=== PATIENT | male | born 1935 | race Hispanic/Latino ===

== ENCOUNTER 2019-03-24 10:39 | Inpatient (IN) | payer MEDICARE ==
--- NOTE | 2019-03-24 11:04 | ED PDOC ---
Arrival/HPI - General Chief Complaint: Weakness/Neurological Deficit Time Seen by Provider: 03/24/19 11:03 - History of Present Illness Narrative History of Present Illness (Text): 03/24/19 11:04 Patient is an 83 yo male with HTN and T2DM who presents with unsteady gait and frequent falls. Patient is Faroese speaking and is at bedside who helps translate and provide the history. Patient is typically very sedentary. However, he walks around the house without any assistive devices. states that patient has had about 3 falls over the past week. After each time, patient refused to come to the hospital. He did not lose consciousness or have head trauma. Patient says he fell because he slipped on water. This morning, patient stood up and was very unsteady on his feet causing him to fall again. notes that patient has been unsteady for awhile but it has noticeably worsened in the past week. Patient denies vision changes, dizziness, lightheadedness, LOC, nausea, vomiting, hearing changes, tinnitus. He states he feels that his legs feel weak and unsteady upon standing and it is hard to keep his balance. He denies focal weakness and sensory deficits. He denies fevers. Denies difficulty with urination. Denies history of stroke or heart attack. He is a heavy smoker for >60 years. He previously was a heavy drinker, quit 5 years ago. Time/Duration: > week Symptom Onset: Gradual Symptom Course: Worsening Activities at Onset: Light Context: Standing, Walking Past Medical History - Provider Review Nursing Documentation Reviewed: Yes Primary Care Provider: Ehsan Guan - Cardiac Hx Hypertension: Yes - Endocrine/Metabolic Hx Diabetes Mellitus Type 2: Yes - Psychiatric Hx Substance Use: No Family/Social History - Physician Review Nursing Documentation Reviewed: Yes Family/Social History: No Known Family HX. denies: CAD/ND Smoking Status: Heavy Smoker > 10 Cigarettes Daily Hx Alcohol Use: No Hx Substance Use: No Allergies/Home Meds Allergies/Adverse Reactions: Allergies No Known Allergies Allergy (Verified 03/24/19 10:58) Home Medications: Home Meds Medication Instructions Recorded Confirmed Bisoprolol [Zebeta] 10 mg PO DAILY 03/24/19 03/24/19 Empagliflozin [Jardiance] 10 mg PO DAILY 03/24/19 03/24/19 GlipiZIDE [Glucotrol] 10 mg PO BID 03/24/19 03/24/19 MetFORMIN [glucoPHAGE] 1,000 mg PO DAILY 03/24/19 03/24/19 hydroCHLOROthiazide [Microzide] 12.5 mg PO DAILY 03/24/19 03/24/19 Review of Systems - Review of Systems Constitutional: absent: Fatigue, Weight Change, Fevers, Night Sweats Eyes: absent: Vision Changes, Eye Pain ENT: absent: Hearing Changes, Tinnitus Respiratory: absent: SOB, Cough Cardiovascular: absent: Chest Pain, Palpitations, Syncope Gastrointestinal: Constipation. absent: Abdominal Pain, Nausea, Vomiting Genitourinary Male: absent: Dysuria, Hematuria Musculoskeletal: absent: Arthralgias, Myalgias Skin: absent: Rash, Pruritis, Skin Lesions Neurological: Gait Changes, Disequilibrium. absent: Headache, Dizziness, Focal Weakness, Speech Changes, Facial Droop, Seizure Endocrine: absent: Diaphoresis, Polyuria, Polydipsia Hemo/Lymphatic: absent: Adenopathy, Easy Bleeding, Easy Bruising Physical Exam Vital Signs Reviewed: Yes Vital Signs Temp Pulse Resp BP Pulse Ox 03/24/19 10:56 98.4 F 64 18 146/75 98 Temperature: Afebrile Blood Pressure: Hypertensive Pulse: Regular Respiratory Rate: Normal Appearance: Positive for: Non-Toxic, Comfortable Pain Distress: None Mental Status: Positive for: Alert and Oriented X 3 - Systems Exam Head: Present: Atraumatic, Normocephalic Pupils: Present: PERRL, Sluggish Extroacular Muscles: Present: EOMI Conjunctiva: Present: Normal Mouth: Present: Moist Mucous Membranes Nose (External): Present: Atraumatic Neck: Present: Normal Range of Motion, Trachea Midline. No: MIDLINE TENDERNESS, Lymphadenopathy Respiratory/Chest: Present: Clear to Auscultation, Good Air Exchange Cardiovascular: Present: Regular Rate and Rhythm, Normal S1, S2. No: Murmurs Abdomen: Present: Normal Bowel Sounds. No: Tenderness, Distention Back: Present: Normal Inspection Upper Extremity: Present: Normal Inspection, Normal ROM, Neurovascularly Intact Lower Extremity: Present: Normal Inspection, Normal ROM, Neurovascularly Intact Neurological: Present: GCS=15, CN II-XII Intact, Speech Normal, Motor Func Grossly Intact, Normal Sensory Function, Normal Cerebellar Funct, Normal 2Pt Descrimination Skin: Present: Warm, Dry, Normal Color Lymphatic: No: Cervical Adenopathy Psychiatric: Present: Alert, Oriented x 3, Normal Insight, Normal Concentration, Normal Affect, Normal Mood Medical Decision Making ED Course and Treatment: 03/24/19 11:35 CT head, labs 03/24/19 12:54 Re-evaluated patient. Resting comfortably. 03/24/19 13:[address] Db Guan who accepts patient for admission. Requests Dr. Braga for neurology consult. Spoke to patient and who are in agreement with plan. Re-evaluation Time: 13:38 Reassessment Condition: Re-examined, Unchanged - Lab Interpretations I have reviewed the lab results: Yes Interpretation: No clinic. lab abnormalty - RAD Interpretation Radiology Orders: CT head w/o contrast- no acute abnormalities, chronic microvascular changes are seen in the periventricular white matter and basal ganglia, mild-mod atrophy Grain Blender: ED Physician, Radiologist - EKG Interpretation EKG Interpretation (Text): 03/24/19 11:36 NSR Interpreted by ED Physician: Yes Type: 12 lead EKG Comparison: No previous EKG avail. Disposition/Present on Arrival - Present on Arrival Any Indicators Present on Arrival: No History of DVT/PE: No History of Uncontrolled Diabetes: No Urinary Catheter: No History of Decub. Ulcer: No History Surgical Site Infection Following: None - Disposition Have Diagnosis and Disposition been Completed?: Yes Diagnosis: Frequent falls, Unsteady gait Disposition: HOSPITALIZED Disposition Time: 13:41 Patient Plan: Admission Condition: FAIR Forms: [employer] (Czech)
[2019-03-24 11:43] LABS: BASO # 0.02 K/mm3 (0.0-2.0); BASO % 0.2 % (0.0-3.0); EOS # 0.1 (0.0-0.7); HEMOGLOBIN 15.8 g/dL (14.0-18.0); LYMPH # 1.9 (1.2-3.4); LYMPH % 17.4 % (22.0-35.0); MEAN CELL VOLUME 91.3 fl (80.0-105.0); MEAN CORPUSCULAR HEMOGLOBIN 29.9 pg (25.0-35.0); MEAN CORPUSCULAR HGB CONC 32.8 g/dl (31.0-37.0); MEAN PLATELET VOLUME 13.7 fl (7.0-11.0); MONO # 0.7 (0.1-0.6); MONO % 6.6 % (1.0-6.0); RBC 5.28 10^6/uL (3.5-6.1); RED CELL DISTRIBUTION WIDTH 12.8 % (11.5-14.5); WHITE BLOOD COUNT 10.8 10^3/uL (4.5-11.0)
[2019-03-24 11:55] LABS: ALB/GLOB RATIO 1.3 (1.1-1.8); ALBUMIN 3.9 g/dL (3.0-4.8); BLOOD UREA NITROGEN 30 mg/dL (7-21); CALCIUM 9.2 mg/dL (8.4-10.5); GFR NON-AFRICAN AMERICAN 53
[2019-03-24 11:59] LABS: ALT/SGPT 14 U/L (7-56); AST/SGOT 18 U/L (17-59)
--- NOTE | 2019-03-24 12:12 | CT ---
Date of service: 03/24/2019 PROCEDURE: CT HEAD WITHOUT CONTRAST. HISTORY: unsteady gait COMPARISON: None available. TECHNIQUE: Axial computed tomography images were obtained through the head/brain without intravenous contrast. Radiation dose: Total exam DLP = 1000.14 mGy-cm. This CT exam was performed using one or more of the following dose reduction techniques: Automated exposure control, adjustment of the mA and/or kV according to patient size, and/or use of iterative reconstruction technique. FINDINGS: HEMORRHAGE: No intracranial hemorrhage. BRAIN: No mass effect or edema. Chronic microvascular changes are seen in the periventricular white matter and basal ganglia. Mild to moderate atrophy. VENTRICLES: Unremarkable. No hydrocephalus. CALVARIUM: Unremarkable. PARANASAL SINUSES: Unremarkable as visualized. No significant inflammatory changes. MASTOID AIR CELLS: Unremarkable as visualized. No inflammatory changes. OTHER FINDINGS: None. IMPRESSION: Chronic microvascular changes are seen in the periventricular white matter and basal ganglia. Mild to moderate atrophy. No acute intracranial findings
[2019-03-24 13:06] LABS: URINE BILIRUBIN NEGATIVE (NEGATIVE); URINE BLOOD TRACE-INTACT (NEGATIVE); URINE GLUCOSE (UA) >=1000 mg/dL (NEGATIVE); URINE LEUKOCYTE ESTERASE NEGATIVE Leu/uL (NEGATIVE); URINE PROTEIN 100 mg/dL (<30 mg/dL); URINE UROBILINOGEN 0.2 E.U./dL (<1 E.U./dL)
[2019-03-24 13:15] LABS: URINE APPEARANCE CLEAR (CLEAR); URINE COLOR YELLOW (YELLOW)
[2019-03-24 13:25] LABS: URINE BACTERIA FEW /hpf; URINE RBC 0 - 2 /hpf (0-2)
--- NOTE | 2019-03-24 19:41 | CON ---
DATE: 03/24/2019 NEUROLOGY CONSULTATION CHIEF COMPLAINT: Frequent falls. HISTORY OF PRESENT ILLNESS: This is an 83-year -old man with history of type 2 diabetes mellitus and hypertension, who is becoming unsteady of gait and has frequent falls. Patient is Cymraes speaking. The is at bedside, helps translate and provides history. However, he walks around the house without any assistive device. states that he has been having 3 falls over the past week. Patient initially refused to come into the hospital, but was brought in. He stood up and he is very unsteady on his feet. He does have evidence of sensorimotor peripheral neuropathy on neuro examination and a wide-based gait, which he will benefit from a subacute rehab with physical therapy and a walker. He needs better diabetic control. B12 is currently pending. CAT scan of the head showed no acute cranial abnormality, just chronic ischemic changes. PAST MEDICAL HISTORY: As above. SOCIAL HISTORY: No illicit drug use, smoking or EtOH abuse. ALLERGIES: NO KNOWN DRUG ALLERGIES. MEDICATIONS: Reviewed by nurses' reconciliation sheet. REVIEW OF SYSTEMS: A 14-point review of systems is as per HPI. FAMILY HISTORY: Noncontributory. PHYSICAL EXAMINATION: GENERAL: Patient is sitting up in bed, in no acute distress. VITAL SIGNS: Temperature is 98.4, pulse rate is 78, blood pressure 148/70, respiratory rate 18, oxygen saturation 98% on room air. HEENT: Atraumatic, normocephalic. PERRLA. Extraocular muscles intact. NECK: Supple. No JVD. No adenopathy noted. LUNGS: Clear to auscultation. No adventitious sounds. HEART: S1 and S2, normal rate and rhythm. No murmurs, rubs or gallops. ABDOMEN: Soft, nontender and nondistended. Bowel sounds present. EXTREMITIES: No clubbing. No cyanosis. Peripheral pulses are 2+ felt bilaterally. NEUROLOGIC: The patient is alert and orientated to person, place, month, and year. Recall time is 0/3. Poor attention span. Slow thought process. Cranial nerves II through XII are intact. Motor exam; moves all extremities equally. No pronator drift seen. Sensory exam; decreased light touch and pinprick up to the calves bilaterally. Decreased vibration at the toes. DTRs are 2+ and 1 at both knees and ankles. Coordination; opxdfy-pu-jadh intact. No dysmetria noted. Gait is deferred for now. 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 We will recommend; 1. Physical therapy as well as subacute rehab. 2. An assisted walker, a 4-wheel walker is most likely advised. 3. Keep blood sugars between 140 to 180 and better diabetic control. 4. Vitamin B12 level and recommend a supplementation. 5. Continue current and present medical management. Thank you for this consult. Kirk Braga MD
[2019-03-24] MEDS ORDERED: Pneumococcal 23-Valent Vaccine IM ONE (21:48)
[2019-03-24 21:49] VITALS: BMI 25.7
[2019-03-24] MEDS: Insulin Regular 1 UNITS/0.01 ML ML SC SCH (22:19)
[2019-03-25 08:00] LABS: BASO # 0.02 K/mm3 (0.0-2.0); BASO % 0.2 % (0.0-3.0); EOS # 0.2 (0.0-0.7); EOS % 2.1 % (1.5-5.0); HEMOGLOBIN 14.7 g/dL (14.0-18.0); LYMPH # 2.3 (1.2-3.4); LYMPH % 23.4 % (22.0-35.0); MEAN CELL VOLUME 89.9 fl (80.0-105.0); MEAN CORPUSCULAR HEMOGLOBIN 29.2 pg (25.0-35.0); MEAN CORPUSCULAR HGB CONC 32.5 g/dl (31.0-37.0); MEAN PLATELET VOLUME 13.9 fl (7.0-11.0); MONO # 0.9 (0.1-0.6); MONO % 9.3 % (1.0-6.0); RBC 5.03 10^6/uL (3.5-6.1); RED CELL DISTRIBUTION WIDTH 12.8 % (11.5-14.5)
[2019-03-25 08:16] LABS: ALB/GLOB RATIO 1.2 (1.1-1.8); ALBUMIN 3.8 g/dL (3.0-4.8); CALCIUM 9.2 mg/dL (8.4-10.5)
[2019-03-25] MEDS: Insulin Regular 1 UNITS/0.01 ML ML SC SCH ×3 (08:22→16:31)
--- NOTE | 2019-03-25 11:56 | CARD ---
APPROVED REPORT Date of service: 03/24/2019 EKG Measurement Heart [id number] CT [id number] <Conclusion> Poor data quality, interpretation may be adversely affected Normal sinus rhythm Nonspecific T wave abnormality Prolonged QT Abnormal ECG
--- NOTE | 2019-03-25 16:06 | HP ---
DATE OF EXAM: 03/25/2019 ADMITTING HISTORY AND PHYSICAL HISTORY OF PRESENT ILLNESS: The patient is an 83-year-old Kosovan-speaking male who presented to the emergency room at the insistence of his family after suffering several falls at home. The patient usually walks around his apartment without any assistive devices; however, recently, he had been falling and at times needing to hold onto the albright and furniture to ambulate around. I recently saw the patient in an office visit; however, he did not mention anything about the falls at that time. The patient denies any lightheadedness, vertigo, orthostasis. PAST MEDICAL HISTORY: The patient known to have a past medical history positive for hypertension and pwl-lhvotmt-thalklotx diabetes mellitus. His diabetes has been rather difficult to control in the past secondary to dietary indiscretion. SOCIAL HISTORY: He continues to smoke more than half a pack of cigarettes a day. He is a nonalcoholic drinker. He is , lives with his , a son is also nearby. ALLERGIES: HE HAS NO KNOWN MEDICAL ALLERGIES. MEDICATIONS: Medications at the time of admission included bisoprolol 10 mg daily, Jardiance 10 mg daily, Glucotrol 10 mg twice a day, metformin 1000 mg twice a day and hydrochlorothiazide 12.5 mg once a day. REVIEW OF SYSTEMS: Otherwise unremarkable. PHYSICAL EXAMINATION: VITAL SIGNS: His blood pressure is 146/75, heart rate is 64. he is afebrile at 98.4 degrees Fahrenheit. HEENT: Examination of the Head, eyes, ears, nose and Throat is unremarkable. The patient has severe poor vision. NECK: Supple with no lymphadenopathy. No goiter. LUNGS: Clear to auscultation and percussion; however, breath sounds are distant. HEART: Regular. No murmurs are appreciated. ABDOMEN: Soft and nontender with no organomegaly. EXTREMITIES: Free of cyanosis, clubbing or edema. NEUROLOGIC: The patient is awake, alert and oriented. There are no focal neurological signs. DIAGNOSTIC DATA: CAT scan of the head showed small vessel disease, was otherwise unremarkable. EKG showed regular sinus rhythm with nonspecific ST-T wave changes. LABORATORY DATA: Laboratory studies show the white blood cell count to be 10.8, hemoglobin and hematocrit are 15.8 and 48.2 respectively, platelet count is 152. Sodium is 138, potassium is 4.7, BUN and creatinine are 30 and 1.3 respectively. Nonfasting glucose is 189. The patient is to be admitted. Neurology consult from Dr. Braga is requested. The patient will be reevaluated in the morning. Ehsan Guan MD
--- NOTE | 2019-03-25 16:12 | PN ---
DATE: 03/25/2019 SUBJECTIVE: The patient is an 83-year-old male with a history of hypertension, sir-jodxxkt-rchrwiwxr diabetes mellitus, who was admitted to the [facility] yesterday after suffering several falls at home. The patient initially did not want to present to the emergency room; however, upon the insistence of his and son, he presented, was evaluated and admitted. The patient denies any vertigo or orthostatic symptoms. He cannot explain his reasons for falling except for his legs giving out. He was evaluated by Dr. Braga. Dr. Braga's consult is greatly appreciated. As per Dr. Braga, the patient is felt to have a peripheral neuropathy, diabetic sensorimotor type. When seen today, the patient is resting comfortably. He voices no complaints. PHYSICAL EXAMINATION: VITAL SIGNS: Stable. Physical exam is unchanged. ASSESSMENT AND PLAN: His and son are bedside. The case was discussed at length with them and they agree with physical therapy and possible transitional care versus subacute care facility depending on his evaluation by the physical therapist. We will continue to follow the patient closely. His medications for diabetes are continued. I discussed the possibility of insulin dosing for his diabetes. The explained that the patient is visually impaired and would not be able to dose himself with insulin that he would have to provided. We will contemplate this option for diabetes control during his hospital stay. Ehsan Guan MD
[2019-03-26] MEDS: Insulin Regular 1 UNITS/0.01 ML ML SC SCH ×3 (08:07→17:02)
--- NOTE | 2019-03-26 13:38 | PN ---
DATE: 03/26/2019 SUBJECTIVE: The patient is an 83-year-old male with a history of hypertension, akg-gjcgazx-gwldpkfym diabetes mellitus who was admitted to the [facility] on 03/24/2019 after suffering several falls at home. Under the insistence of his and son, the patient was brought to the emergency room where he is evaluated and admitted. He was evaluated by Dr. Braga, the neurologist who felt the patient has had a diabetic sensorimotor type peripheral neuropathy. When seen today, the patient is resting comfortably. He voices no complaints. Heart is regular. Lungs are clear anteriorly. The patient was apparently evaluated by physical therapy yesterday; however, no note is yet available in the chart. Orthostatic blood pressures were ordered; however, they were not yet done. I discussed the case with the nurse who claimed the short staff holiday weekend physical therapist, we will make every attempt to evaluate the patient later today. Orthostatics will be done later today also. We will continue to follow the patient closely. Hopefully, he will be accepted to either our Transitional Care Unit or recommendation to subacute care facility for ambulatory strength and endurance. Ehsan Guan MD
[2019-03-27] MEDS: Insulin Regular 1 UNITS/0.01 ML ML SC SCH ×6 (04:27→22:02)
[2019-03-27] MEDS ORDERED: Iodixanol 320 MG/ML 100 ML BOTTLE IV ONE (11:03)
--- NOTE | 2019-03-27 11:34 | CT ---
Date of service: 03/27/2019 PROCEDURE: CT HEAD WITHOUT CONTRAST. HISTORY: right arm weakness COMPARISON: CT head dated 03/24/2019. TECHNIQUE: Axial computed tomography images were obtained through the head/brain without intravenous contrast. Radiation dose: Total exam DLP = 980.97 mGy-cm. This CT exam was performed using one or more of the following dose reduction techniques: Automated exposure control, adjustment of the mA and/or kV according to patient size, and/or use of iterative reconstruction technique. FINDINGS: HEMORRHAGE: No intracranial hemorrhage. BRAIN: No mass effect or edema. Atrophy. Chronic microvascular ischemic changes. Bilateral basal ganglia lacunar infarctions. VENTRICLES: Prominent. No hydrocephalus. CALVARIUM: Unremarkable. PARANASAL SINUSES: Unremarkable as visualized. No significant inflammatory changes. MASTOID AIR CELLS: Unremarkable as visualized. No inflammatory changes. OTHER FINDINGS: None. IMPRESSION: No acute intracranial pathology. Age-related changes. No significant interval change. Findings given to CRISTINA Guillermo by Dr. Dennison at 11:27 a.m. on 03/27/2019.
--- NOTE | 2019-03-27 11:36 | PCM.RRT ---
PROFESSOR OF RHETORIC Nurse Assessment - Situation Date: 03/27/19 Time PROFESSOR OF RHETORIC was called: 10:48 PROFESSOR OF RHETORIC Responder Arrival Time: 10:48 PROFESSOR OF RHETORIC Location:: [address] [place] [address] Room Number: [id number] PROFESSOR OF RHETORIC Reason for Call: Possible Stroke PROFESSOR OF RHETORIC Called By: RN - IV IV Inserted during PROFESSOR OF RHETORIC?: No - Respiratory Oxygen Delivery Method: Room Air Received Nebulizer Treatments:: No Was the Patient Ventilated with Bag/Mask 100% O2?: No Secretions Suctioned?: No Was the Patient Intubated?: No Was the Patient Placed on a Ventilator?: No - Diagnostic Test Ordered EKG: Yes CT Scan: Yes Other Diagnostic Test Ordered: CTA head, CT head, MRI brain - Stat Labs Ordered PROFESSOR OF RHETORIC Stat Labs Ordered: CBC, BMP PROFESSOR OF RHETORIC Other Labs Ordered: magnesium, phosporus CPR started during PROFESSOR OF RHETORIC?: No - Vital Signs Vital Sign: Rapid Response Vital Sign Blood Pressure 155/80 Pulse Rate 68 Respiratory Rate 18 Temperature 98.6 F Oxygen Saturation 94 - Finger Stick Blood Glucose Finger Stick Blood Glucose: 261 - Time PROFESSOR OF RHETORIC Ended Time PROFESSOR OF RHETORIC Ended: 11:05 - Recommendations Notifications: Attending Physician, Consultations - Neurological Status (Select all that apply): Alert, Responsive - Respiratory Oxygen Delivery Method: Room Air - Constitutional Appears: Non-toxic, No Acute Distress - Head Head Exam: ATRAUMATIC, NORMOCEPHALIC - Eyes Eye Exam: EOMI, Normal appearance - Respiratory Exam Respiratory Exam: Clear to Ausculation Bilateral, NORMAL BREATHING PATTERN. absent: Accessory Muscle Use - Cardiovascular Exam Cardiovascular Exam: RRR, +S1, +S2 - GI/Abdominal Exam GI & Abdominal Exam: Soft, Normal Bowel Sounds - Neurological Exam Neurological Exam: Alert, Awake Additional exam: left lower facial droop, incoherent speech, dysarthria, left arm 0/5 strength, left leg 2/5 - Extremities Exam Extremities Exam: Normal Inspection Plan - Assessment of Findings&Treatment Plan 83 year old male with a past medical history of hypertension, DM II, and tobacco dependence who was admitted to [facility] for frequent falls at home. Today, in the late morning the patient was noted to have left side weakness by the PMD. A code stroke was called. The patient was noted to have slurred speech, left arm weakness, and a left facial droop since yesterday (wednesday03/26/2019) according to the son who lives with the patient. The patient is not in the time window for tPA. The patient was taken to CT accompanied by the house doctor and nursing staff. He will be transferred to telemetry for cardiac monitoring. The patient scored a 15 on the NIH stroke scale at the time of code stroke. The case was discussed with the on-call neurohospitalist who agreed the patient is not a candidate for tPA. NIHSS Scale ([place]) Time Performed: 10:55 - Notes Notes: 15
--- NOTE | 2019-03-27 11:53 | CP.PCM.CON ---
History of Present Illness - History of Present Illness History of Present Illness: Neurology Consultation Note: Consult requested by Dr. Macias Mr. Patiño is an 83-year-old man with a past medical history of HTN, DM, who was initially admitted for frequent falls and deconditioning, and was found to be more lethargic with left facial droop and left side weakness yesterday that appears to have progressed more today. A "code stroke" was called, but the last time he was at his baseline was not known. Non-contrast CT scan of the head showed multiple chronic subcortical infarcts as well as some right parietal and right pontine areas of hypodensity with a subacute appearance. 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 The patient continues to have dysarthria and lefts side weakness. Review of Systems - Review of Systems Systems not reviewed;Unavailable: Altered Mental Status Past Patient History - Past Social History Smoking Status: Current Some Days Smoker - CARDIAC Hx Hypertension: Yes - PULMONARY Hx Respiratory Disorders: Yes (SMOKES 10 CIGARETTES EVERY 3 D DAY.) - NEUROLOGICAL Hx Neurological Disorder: Yes (PARESTHESIA LE) - HEENT Hx HEENT Problems: Yes Hx Cataracts: Yes (WITH BIALTERAL SX) Hx Glaucoma: Yes (RIGHT EYE HAD LASER SX.) - RENAL Hx Chronic Kidney Disease: No - ENDOCRINE/METABOLIC Hx Diabetes Mellitus Type 2: Yes - HEMATOLOGICAL/ONCOLOGICAL Hx Blood Disorders: No - INTEGUMENTARY Hx Dermatological Problems: No - MUSCULOSKELETAL/RHEUMATOLOGICAL Hx Musculoskeletal Disorders: Yes Hx Falls: Yes (MULTIPLE,LEGS WEAK) Hx Unsteady Gait: Yes - GASTROINTESTINAL Hx Gastrointestinal Disorders: Yes (HERNIA SX) - GENITOURINARY/GYNECOLOGICAL Hx Genitourinary Disorders: No - PSYCHIATRIC Hx Psychophysiologic Disorder: No Hx Substance Use: No - SURGICAL HISTORY Hx Surgeries: Yes (BILATERAL CATARACT SX,GLAUCOMA SX,HERNIORHAPPHY) Meds Allergies/Adverse Reactions: Allergies Allergy/AdvReac Type Severity Reaction Status Date / Time No Known Allergies Allergy Verified 03/24/19 17:32 - Medications Medications: Current Medications Fludrocortisone Acetate (Florinef) 0.1 mg PO DAILY [facility] Last Admin: 03/27/19 10:19 Dose: 0.1 mg Glipizide (Glucotrol) 10 mg PO BID [facility] Last Admin: 03/27/19 10:19 Dose: 10 mg Hydrochlorothiazide (Microzide) 12.5 mg PO DAILY [facility] Last Admin: 03/27/19 10:19 Dose: 12.5 mg Insulin Human Regular (Humulin R) 0 units SC ACHS [facility]; Protocol Last Admin: 03/27/19 08:11 Dose: 2 unit Metformin HCl (Glucophage) 1,000 mg PO DAILY [facility] Last Admin: 03/27/19 10:18 Dose: 1,000 mg Nicotine (Nicoderm Cq) 1 patch TD DAILY [facility] Last Admin: 03/27/19 10:19 Dose: 1 patch Non-Formulary Medication (Bisoprolol [Zebeta]) 10 mg PO DAILY [facility] Physical Exam - Constitutional Appears: Confused - Head Exam Head Exam: ATRAUMATIC, NORMAL INSPECTION, NORMOCEPHALIC - Eye Exam Eye Exam: EOMI, Normal appearance, PERRL - ENT Exam ENT Exam: Mucous Membranes Moist, Normal Exam - Neck Exam Neck exam: Positive for: Normal Inspection - Respiratory Exam Respiratory Exam: Clear to Auscultation Bilateral, NORMAL BREATHING PATTERN - Cardiovascular Exam Cardiovascular Exam: REGULAR RHYTHM, +S1, +S2 - GI/Abdominal Exam GI & Abdominal Exam: Normal Bowel Sounds, Soft. absent: Tenderness - Neurological Exam Neurological exam: Alert, Altered, CN II-XII Intact, Reflexes Normal Additional comments: Dysarthric and somewhat aphasic. left side upper extremity is 3/5 in strength, left lower extremity is 3/5 in strength. Able to maintain both limbs for more than 5 seconds anti-gravity. Left side neglect noted. Left facial droop noted. NIHSS= 6 - Psychiatric Exam Psychiatric exam: Normal Affect, Normal Mood - Skin Skin Exam: Dry, Intact, Normal Color, Warm Results - Vital Signs Recent Vital Signs: Last Vital Signs Temp 98.4 F 03/27/19 08:22 Pulse 60 03/27/19 08:22 Resp 18 03/27/19 08:22 BP 148/67 03/27/19 08:22 Pulse Ox 93 L 03/27/19 08:22 - Labs Result Diagrams: 03/27/19 10:50 03/25/19 07:00 Labs: Laboratory Results - last 24 hr 03/26/19 03/26/19 03/26/19 11:13 16:06 21:09 POC Glucose (mg/dL) 279 H 241 H 193 H 03/27/19 03/27/19 03/27/19 06:13 10:49 11:31 POC Glucose (mg/dL) 226 H 261 H 227 H Assessment & Plan (1) Ischemic stroke Assessment and Plan: This appears to be likely due to heavy atherosclerotic and small vessel disease burden due to chronic HTN and DM. He is not a candidate for IV tPA due to being outside the 4.5 hour time window. There is no large vessel occlusion, and therefor thrombectomy is not indicated. A CT perfusion would be helpful to determine if the right carotid artery stenosis is causing his symptoms with decreased cerebral perfusion. Neurointerventional will be consulted for possible FLAKITA stenting. I recommend the followin. Telemetry 2. MRI brain without contrast 3. Echocardiogram with bubble study 4. Load with plavix 300 mg now and continue 75 mg daily along with aspirin 81 mg daily 5. Start high dose statin with Lipitor 40 mg daily 6. Fluids with NS at 100 mL/hr 7. Permissive HTN (only treat BP higher than 220/110 mm Hg for the next 36 hours) 8. Check HbA1c, Lipid panel, B12, folate, TSH and vitamin D 9. PT/OT eval and treatment 10. Case management consult Thank you for this consultation. Status: Acute
[2019-03-27 12:12] LABS: HEMOGLOBIN 14.9 g/dL (14.0-18.0); MEAN CELL VOLUME 89.9 fl (80.0-105.0); MEAN CORPUSCULAR HEMOGLOBIN 30.2 pg (25.0-35.0); MEAN CORPUSCULAR HGB CONC 33.6 g/dl (31.0-37.0); MEAN PLATELET VOLUME 13.6 fl (7.0-11.0); RBC 4.94 10^6/uL (3.5-6.1); RED CELL DISTRIBUTION WIDTH 12.8 % (11.5-14.5); WHITE BLOOD COUNT 11.6 10^3/uL (4.5-11.0)
[2019-03-27] MEDS ORDERED: Sodium Chloride 0.9% 500 ML IV STA (12:25)
[2019-03-27 12:26] LABS: ALB/GLOB RATIO 1.2 (1.1-1.8); ALBUMIN 3.8 g/dL (3.0-4.8); CALCIUM 8.9 mg/dL (8.4-10.5)
--- NOTE | 2019-03-27 12:33 | CT ---
Date of service: 03/27/2019 PROCEDURE: CT Angiography of the Head and Neck. HISTORY: cva COMPARISON: Noncontrast head CT 03/27/2019. TECHNIQUE: CT angiography of the head and neck was performed following intravenous contrast administration. Coronal and sagittal maximum intensity projection reformatted images were generated. Contrast Dose: Visipaque 320, 100 cc Radiation dose: Total exam DLP = 503.34 mGy-cm. This CT exam was performed using one or more of the following dose reduction techniques: Automated exposure control, adjustment of the mA and/or kV according to patient size, and/or use of iterative reconstruction technique. FINDINGS: INTERNAL CEREBRAL ARTERIES: Note is made of partially calcified atherosclerosis of the bilateral cavernous internal carotid artery segments without left ICA significant stenosis. Limited petrous ICA atherosclerotic plaques identified, right greater than left. Moderate to severe stenosis seen at the mid right cavernous ICA. The skull base, and supraclinoid segments are bilaterally widely patent. ANTERIOR CEREBRAL ARTERIES: Unremarkable. A1 and A2 segments are widely patent. Smaller distal branches unremarkable, as visualized. MIDDLE CEREBRAL ARTERIES: Unremarkable. M1 and M2 segments are widely patent. Perisylvian branches grossly symmetric. POSTERIOR CIRCULATION: Basilar Artery: Moderate to severe proximal to mid segmental stenosis identified. Distal Vertebral Arteries: Left dominant vertebrobasilar circulation. 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 Posterior Cerebral Arteries: Unremarkable. Posterior Inferior Cerebellar Arteries: Unremarkable. 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 Common Carotid arteries: The bilateral common carotid appear widely patent from their origins to their bifurcations with no significant stenosis appreciated. Diffuse intimal thickening and limited scattered calcified atherosclerotic plaque is identified at the bilateral common carotid arteries. Moderate bilateral carotid bulb are hard plaque is identified. No evidence to suggest common carotid artery dissection. Internal Carotid arteries: Mild origin stenosis of the cervical internal carotid artery segments is identified bilaterally due to soft greater than hard plaque at the bulb extending into the origins of these arteries. No evidence of dissection bilaterally. There is prominent ectasis of the proximal right ICA. Limited atherosclerosis identified at the distal bilateral cervical ICAs. External Carotid arteries: Appear unremarkable bilaterally. Vertebral arteries: The bilateral vertebral arteries appear normal in caliber from their origins to their distal cervical segments. No significant stenosis or definite pattern of dissection. ANEURYSM/ VASCULAR MALFORMATIONS: None. OTHER FINDINGS: None. IMPRESSION: 1. 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 No large vessel occlusion appreciated in the intracranial segment of the exam. 2. Moderate to severe mid right cavernous ICA stenosis. No moderate or severe left ICA stenosis in the intracranial portion of the examination though bilateral cavernous and petrous segmental atherosclerotic plaque is identified. 3. Mild origin stenoses of the bilateral cervical internal carotid arteries identified without moderate or high-grade stenosis or even occlusion otherwise. 4. Prominent proximal right cervical ICA ectasis. 5. 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
[2019-03-27] MEDS: Sodium Chloride 0.9% 1,000 ML IV SCH (13:37)
[2019-03-27 17:13] LABS: FOLATE 9.6 ng/mL
--- NOTE | 2019-03-28 00:49 | PN ---
DATE: 03/27/2019 SUBJECTIVE: The patient is an 83-year-old male with a history of hypertension, noninsulin-dependent diabetes mellitus who was admitted to the [facility] on 03/24/2019 after suffering several falls at home. On the insistence of his and son, he was brought to the emergency room where he was evaluated and admitted. He was evaluated by Dr. Braga the neurologist who felt the patient had diabetic sensorimotor type peripheral neuropathy. The patient was being scheduled for physical therapy, either at the Transitional Care Unit at [facility] or at a subacute care facility. The orthostatic blood pressures were ordered and the patient was shown to be orthostatic. His blood pressure was 143/69 when supine and it fell to 105/66 when standing. Florinef was started. The patient received his first dose last evening and the second dose today. When seen today, the patient was much less responsive. He was aphasic. There was a definite weakness on his left side especially noted in the left upper extremity. The patient was unable to follow commands or give handgrips. Deep tendon reflexes were negative on the left side. Babinski reflexes were positive. The Code Stroke was called. The patient is being transferred to room 277, telemetry and after a CT scan is performed. The CT scan of the head without contrast showed no acute intracranial pathology. There were age related changes and no significant changes compared to the CT scan that was done on admission. Dr. Braga his neurologist was notified. Dr. Monahan the neurologist program production specialist also was consulted. The family members were present during this evaluation and Code Stroke and they were kept abreast of the situation. An MRI is hopefully pending for later on today. The patient will be reevaluated in the morning. Anticoagulation is to be discussed with Neurology. As per family at bedside, the patient did become very confused in the past while on Januvia for his diabetes, and therefore, the Januvia has been discontinued. We are continuing to follow the patient closely. Ehsan Guan MD
[2019-03-28] MEDS: Sodium Chloride 0.9% 1,000 ML IV SCH ×3 (04:55→21:57)
[2019-03-28] MEDS: Insulin Regular 1 UNITS/0.01 ML ML SC SCH ×4 (08:20→21:53)
[2019-03-28] MEDS: Non Formulary Medication (Bisoprolol [Zebeta] 10 mg) PO SCH (09:15)
--- NOTE | 2019-03-28 11:10 | CARD ---
APPROVED REPORT Date of service: 03/27/2019 EKG Measurement Heart [id number] <Conclusion> Sinus rhythm with occasional premature ventricular complexes Nonspecific ST and T wave abnormality Prolonged QT Abnormal ECG
--- NOTE | 2019-03-28 11:10 | MRI ---
Date of service: 03/28/2019 PROCEDURE: MRI BRAIN WITHOUT CONTRAST HISTORY: Code stroke COMPARISON: Comparison made with CTA of the neck and brain 03/27/2019. TECHNIQUE: Multiplanar, multisequence MR images of the brain were obtained without intravenous contrast enhancement. FINDINGS: HEMORRHAGE: No acute parenchymal, subarachnoid nor extra-axial hemorrhage. No evidence of hemosiderin deposition is identified on gradient echo weighted sequence. DWI: Multiple acute -subacute infarcts seen scattered about both middle cerebellar peduncles, brainstem including both cerebral peduncles and medial margins of both occipital poles. There is also a faint small infarct in the left vermis subacute -chronic infarct left vermis BRAIN PARENCHYMA: Moderate to fairly significant diffuse and confluent chronic white matter ischemic changes seen extending peripherally into the deep and subcortical white matter both cerebral hemispheres. In addition, multiple more discrete chronic infarcts scattered about the deep and subcortical white matter as well as both basal nuclei and both cerebellar hemispheres left greater than right. Moderate generalized volume loss. Numerous dilated perivascular spaces are present most pronounced within both basal nuclei extending into the ramírez radiata and inferior centrum semiovale. VENTRICLES: No obstructive hydrocephalus. CRANIUM: Unremarkable. ORBITS: Changes of bilateral cataract surgery again seen. PARANASAL SINUSES/MASTOIDS: Clear VASCULAR SYSTEM: Apparent atherosclerotic narrowing of the distal right vertebral artery (intradural segment) just before it joins the left vertebral artery OTHER FINDINGS: None. IMPRESSION: Multiple acute -subacute infarcts seen scattered about both middle cerebellar peduncles, brainstem including both cerebral peduncles and medial margins of both occipital poles. There is also a faint small infarct in the left vermis subacute -chronic infarct left vermis Moderate to fairly significant diffuse and confluent chronic white matter ischemic changes seen extending peripherally into the deep and subcortical white matter both cerebral hemispheres. In addition, multiple more discrete chronic infarcts scattered about the deep and subcortical white matter as well as both basal nuclei and both cerebellar hemispheres left greater than right. Suspect irregular atherosclerotic narrowing distal right vertebral artery just (intradural segment), just before joining left vertebral artery Moderate generalized volume loss. Findings discussed with 2 Elias Nance at 11:05 a.m. with written down and read back verification.
--- NOTE | 2019-03-28 11:32 | CP.PCM.PCO ---
Physician Communication Note - Physician Communication Note Physician Communication Note: echo pending, s/p CVA
--- NOTE | 2019-03-29 01:42 | PN ---
DATE: 03/28/2019 SUBJECTIVE: The patient was seen this Wednesday in room 277, bed 1 with his son and at the bedside. The son seems a bit angry at his father's illness asking questions about his scans and asking to compare the initial CT scan to the most recent one yesterday and his MRI of this morning. PHYSICAL EXAMINATION: GENERAL: The patient is in bed, does not respond to voice and light touch. Left side is completely flaccid. He is breathing on his own. Does not follow commands. LUNGS: Respirations are easy. HEART: Not tachycardic. EXTREMITIES: Show no edema. LABORATORY DATA: CT scans were reviewed. Initial CT scan is negative. Followup CT scan was negative for hemorrhage or stroke. CTA showed multiple defects and a rather extensive atherosclerotic cerebrovascular disease. MRI shows multi-infarcts in the core and central brain functions. PLAN: We will discuss with Neurology. We will certainly need to speak with the son and the patient's family and explain his poor prognosis in detail. Continue aggressive supportive care. Echo is pending. We will continue to follow. Bobo Guan MD [facility]
--- NOTE | 2019-03-29 07:52 | CP.PCM.PCO ---
<Wili Sanon - Last Filed: 03/29/19 07:54> Physician Communication Note - Physician Communication Note Physician Communication Note: CODE BLUE/ INSPECTOR [employer] SEAM Addendum Addendum: 03/29/19 07:45 INSPECTOR PL[employer] SE[employer] called 0650 for respiratory distress/ apnea; Patient was noted to become cyanotic during suctioning this morning During [employer] evaluation patient was noted to be Patient was unresponsive not responding to verbal or physical stimuli Pale, Diaphoretic, Cyanotic, No breath sounds, pulseless Code blue called at 0654 Initial vital set unobtainable CPR started 0655; Pulse checks Q2 minutes Noted to be in PEA throughout code 4 rounds Epi and 2 round bicarb given ROSC Obtained after 13 minutes at 0707 Intubated at 0714 and transferred to ICU PMD notified this morning Both of patients Sons at bedside BP Post ROSC: 221/106 209/146 - 0710AM Labs: CBC, CMP, EKG, ABG, CXR, CT Head Code Leader: Dr. Hugo Acosta Attending Present During Code; Dr. Jara <Ana Jara - Last Filed: 03/29/19 19:04> Attending/Attestation - Attestation I have personally seen and examined this patient.: Yes I have fully participated in the care of the patient.: Yes I have reviewed all pertinent clinical information: Yes
[2019-03-29 07:57] LABS: HEMOGLOBIN 14.2 g/dL (14.0-18.0); MEAN CELL VOLUME 91.9 fl (80.0-105.0); MEAN CORPUSCULAR HEMOGLOBIN 29.4 pg (25.0-35.0); MEAN PLATELET VOLUME 13.9 fl (7.0-11.0); RBC 4.83 10^6/uL (3.5-6.1); RED CELL DISTRIBUTION WIDTH 12.7 % (11.5-14.5); WHITE BLOOD COUNT 14.5 10^3/uL (4.5-11.0)
[2019-03-29 08:15] LABS: ALB/GLOB RATIO 1.2 (1.1-1.8); ALBUMIN 3.2 g/dL (3.0-4.8); ALT/SGPT 125 U/L (7-56); AST/SGOT 147 U/L (17-59); BLOOD UREA NITROGEN 18 mg/dL (7-21); CALCIUM 7.8 mg/dL (8.4-10.5); GFR NON-AFRICAN AMERICAN 58
--- NOTE | 2019-03-29 08:50 | CT ---
Date of service: 03/29/2019 PROCEDURE: CT HEAD WITHOUT CONTRAST. HISTORY: code blue COMPARISON: Unenhanced head CT 03/27/2019. Brain MRI without contrast 03/28/2019. TECHNIQUE: Axial computed tomography images were obtained through the head/brain without intravenous contrast. Radiation dose: Total exam DLP = 960.87 mGy-cm. This CT exam was performed using one or more of the following dose reduction techniques: Automated exposure control, adjustment of the mA and/or kV according to patient size, and/or use of iterative reconstruction technique. FINDINGS: HEMORRHAGE: No intracranial hemorrhage. BRAIN: A small lucency at the upper right maranda represents of a small subacute infarct corresponding to restricted diffusion in the same location in prior brain MRI noted above. Other areas of acute or subacute tiny infarcts are not as well defined as in prior MRI but may be mass by chronic microangiopathy to some degree. Age-appropriate diffuse cerebral atrophy chronic microangiopathy are reiterated as well as chronic lacunes identified at the bilateral basal ganglia, left occipital lobe and left cerebellum. No interval mass effect or suspicious extra-axial collection appreciable. VENTRICLES: Unremarkable. No hydrocephalus. CALVARIUM: Unremarkable. PARANASAL SINUSES: Unremarkable as visualized. No significant inflammatory changes. MASTOID AIR CELLS: Unremarkable as visualized. No inflammatory changes. OTHER FINDINGS: None. IMPRESSION: A small subacute infarct upper right maranda corresponding to area of restricted diffusion on prior brain MRI 03/28/2019.. Consider follow-up MRI or CT. Multifocal additional small infarcts identified in prior brain MRI primarily the bilateral posterior cerebral artery distribution are less well characterized due to their and the presence of chronic microangiopathy in this patient reducing density in significant portions of the patient's white matter. No significant mass effect throughout the brain at this time. No intracranial hemorrhage. Multiple chronic lacune is are identified as discussed above. Findings discussed with Dr. Lenora Guan with written down and read back verification 03/29/2019 8:39 a.m..
--- NOTE | 2019-03-29 08:56 | RAD ---
Date of service: 03/29/2019 HISTORY: placement check COMPARISON: No prior. FINDINGS: LUNGS: Left upper lobe infiltrate overlying portions of the heart and aortic arch. PLEURA: No significant pleural effusion identified, no pneumothorax apparent. CARDIOVASCULAR: Cardiomegaly. No evidence of acute, significant cardiovascular disease. Atherosclerotic calcifications identified primarily aortic arch. OSSEOUS STRUCTURES: No significant abnormalities. VISUALIZED UPPER ABDOMEN: Distended stomach. OTHER FINDINGS: Endotracheal tube in satisfactory position. IMPRESSION: Left upper lobe infiltrate. Satisfactory position of endotracheal tube.
[2019-03-29 09:32] LABS: ARTERIAL BLOOD GAS HCO3 20.2 mmol/L (21-28); ARTERIAL BLOOD GAS O2 SAT 99.8 % (95-98); ARTERIAL BLOOD GAS PCO2 44 mm/Hg (35-45); ARTERIAL BLOOD GAS PH 7.27 (7.35-7.45); ARTERIAL BLOOD GAS TCO2 21.6 mmol.L (22-28)
--- NOTE | 2019-03-29 10:01 | CP.PCM.CON ---
<Rylan Benson - Last Filed: 03/29/19 11:23> History of Present Illness - History of Present Illness History of Present Illness: Rylan Benson, PGY-1 Consult note for Critical Care CC: S/P code blue for pulselessness and unresponsiveness HPI: Mr. Chang is a 83 M with PMHx of HTN and NIDDM who presented to the ICU s/p ROSC achieved after PEA, 4 rounds of epinephrine and intubation. Patient has been on telemetry floor originally admitted for multiple falls, for which neurologic workup in ongoing. Repeat lab work as well as chest x-ray and ABG were ordered. CTA performed a few days ago shows extensive atherosclerotic cerebrovascular disease. Further ROS unobtainable due to clinical condition. PMHx: HTN, NIDDM PSHx: All: NKDA Social: >half pack smoker a day Meds: As per MAR Family hx: Noncontributory Review of Systems - Review of Systems Systems not reviewed;Unavailable: Intubated Review of Systems: 12 point ROS unable to be obtained due to clinical condition Past Patient History - Past Social History Smoking Status: Current Some Days Smoker - CARDIAC Hx Hypertension: Yes - PULMONARY Hx Respiratory Disorders: Yes (SMOKES 10 CIGARETTES EVERY 3 D DAY.) - NEUROLOGICAL Hx Neurological Disorder: Yes (PARESTHESIA LE) - HEENT Hx HEENT Problems: Yes Hx Cataracts: Yes (WITH BIALTERAL SX) Hx Glaucoma: Yes (RIGHT EYE HAD LASER SX.) - RENAL Hx Chronic Kidney Disease: No - ENDOCRINE/METABOLIC Hx Diabetes Mellitus Type 2: Yes - HEMATOLOGICAL/ONCOLOGICAL Hx Blood Disorders: No - INTEGUMENTARY Hx Dermatological Problems: No - MUSCULOSKELETAL/RHEUMATOLOGICAL Hx Musculoskeletal Disorders: Yes Hx Falls: Yes (MULTIPLE,LEGS WEAK) Hx Unsteady Gait: Yes - GASTROINTESTINAL Hx Gastrointestinal Disorders: Yes (HERNIA SX) - GENITOURINARY/GYNECOLOGICAL Hx Genitourinary Disorders: No - PSYCHIATRIC Hx Psychophysiologic Disorder: No Hx Substance Use: No - SURGICAL HISTORY Hx Surgeries: Yes (BILATERAL CATARACT SX,GLAUCOMA SX,HERNIORHAPPHY) Meds Allergies/Adverse Reactions: Allergies Allergy/AdvReac Type Severity Reaction Status Date / Time No Known Allergies Allergy Verified 03/24/19 17:32 - Medications Medications: Current Medications Aspirin (Ecotrin) 81 mg PO DAILY [facility] Last Admin: 03/28/19 09:16 Dose: 81 mg Atorvastatin Calcium (Lipitor) 40 mg PO DIN [facility] Last Admin: 03/28/19 17:31 Dose: 40 mg Clopidogrel Bisulfate (Plavix) 75 mg PO DAILY [facility] Last Admin: 03/28/19 09:16 Dose: 75 mg Fludrocortisone Acetate (Florinef) 0.1 mg PO DAILY [facility] Last Admin: 03/28/19 10:50 Dose: 0.1 mg Glipizide (Glucotrol) 10 mg PO BID [facility] Last Admin: 03/28/19 17:31 Dose: 10 mg Heparin Sodium (Porcine) (Heparin) 5,000 units SC Q12 [facility]; Protocol Last Admin: 03/28/19 21:53 Dose: 5,000 units Hydrochlorothiazide (Microzide) 12.5 mg PO DAILY [facility] Last Admin: 03/27/19 10:19 Dose: 12.5 mg Sodium Chloride (Sodium Chloride 0.9%) 1,000 mls @ 100 mls/hr IV .Q10H [facility] Last Admin: 03/28/19 21:57 Dose: 100 mls/hr Insulin Human Regular (Humulin R) 0 units SC ACHS [facility]; Protocol Last Admin: 03/28/19 21:53 Dose: Not Given Metformin HCl (Glucophage) 1,000 mg PO DAILY [facility] Last Admin: 03/28/19 09:16 Dose: 1,000 mg Nicotine (Nicoderm Cq) 1 patch TD DAILY [facility] Last Admin: 03/28/19 09:16 Dose: 1 patch Non-Formulary Medication (Bisoprolol [Zebeta]) 10 mg PO DAILY [facility] Last Admin: 03/28/19 09:15 Dose: Not Given Physical Exam - Additional Findings Additional findings: - Constitutional Appears: Intubated - Head Exam Head Exam: ATRAUMATIC, NORMAL INSPECTION, NORMOCEPHALIC - Eye Exam Eye Exam: PERRL - ENT Exam ENT Exam: Mucous Membranes Moist, Normal Exam, ETT in place - Neck Exam Neck exam: Positive for: Normal Inspection - Respiratory Exam Respiratory Exam: Clear to Auscultation Bilateral, NORMAL BREATHING PATTERN - Cardiovascular Exam Cardiovascular Exam: REGULAR RHYTHM, +S1, +S2 - GI/Abdominal Exam GI & Abdominal Exam: Normal Bowel Sounds, Soft. absent: Tenderness - Neurological Exam Neurological exam: AAOx0 Additional comments: residual weakness unable to be assessed - Psychiatric Exam Psychiatric exam: unable to be assessed - Skin Skin Exam: Dry, Intact, Normal Color, Warm Results - Vital Signs Recent Vital Signs: Last Vital Signs Temp 98.4 F 03/29/19 06:00 Pulse 102 H 03/29/19 06:00 Resp 20 03/29/19 07:33 BP 170/73 H 03/29/19 06:00 Pulse Ox 99 03/29/19 07:33 - Labs Result Diagrams: 03/29/19 07:40 03/29/19 07:40 Labs: Laboratory Results - last 24 hr 03/28/19 03/28/19 03/28/19 10:00 11:28 16:34 WBC RBC Hgb Hct MCV MCH MCHC RDW Plt Count MPV pCO2 pO2 HCO3 ABG pH ABG Total CO2 ABG O2 Saturation ABG Base Excess ABG Potassium Glucose Lactate FiO2 Crit Value Called To Crit Value Called By Blood Gas Notified Time Sodium Potassium Chloride Carbon Dioxide Anion Gap BUN Creatinine Est GFR ( Amer) Est GFR (Non-Af Amer) POC Glucose (mg/dL) 209 H 137 H Random Glucose Uric Acid 6.9 Calcium Phosphorus Magnesium Total Bilirubin AST ALT Alkaline Phosphatase Total Protein Albumin Globulin Albumin/Globulin Ratio Arterial Blood Potassium 03/28/19 03/29/19 03/29/19 21:30 07:40 07:40 WBC 14.5 H D RBC 4.83 Hgb 14.2 Hct 44.4 MCV 91.9 MCH 29.4 MCHC 32.0 RDW 12.7 Plt Count 156 MPV 13.9 H pCO2 pO2 HCO3 ABG pH ABG Total CO2 ABG O2 Saturation ABG Base Excess ABG Potassium Glucose Lactate FiO2 Crit Value Called To Crit Value Called By Blood Gas Notified Time Sodium 139 Potassium 3.3 L Chloride 102 Carbon Dioxide 21 Anion Gap 19 BUN 18 Creatinine 1.2 Est GFR ( Amer) > 60 Est GFR (Non-Af Amer) 58 POC Glucose (mg/dL) 87 Random Glucose 334 H* D Uric Acid Calcium 7.8 L Phosphorus 7.5 H Magnesium 1.9 Total Bilirubin 1.4 H AST 147 H D ALT 125 H Alkaline Phosphatase 62 Total Protein 5.8 Albumin 3.2 Globulin 2.6 Albumin/Globulin Ratio 1.2 Arterial Blood Potassium 03/29/19 09:10 WBC RBC Hgb Hct MCV MCH MCHC RDW Plt Count MPV pCO2 44 pO2 294.0 H HCO3 20.2 L ABG pH 7.27 L ABG Total CO2 21.6 L ABG O2 Saturation 99.8 H ABG Base Excess -6.6 L ABG Potassium 3.6 Glucose 385 H Lactate 2.8 H FiO2 100.0 Crit Value Called To Crit Value Called By Micheal Blood Gas Notified Time 931 Sodium 140.0 Potassium Chloride 101.0 Carbon Dioxide Anion Gap BUN Creatinine Est GFR ( Amer) Est GFR (Non-Af Amer) POC Glucose (mg/dL) Random Glucose Uric Acid Calcium Phosphorus Magnesium Total Bilirubin AST ALT Alkaline Phosphatase Total Protein Albumin Globulin Albumin/Globulin Ratio Arterial Blood Potassium 3.6 Assessment & Plan - Assessment and Plan (Free Text) Assessment: Mr. Chang is a 83 M with PMHx of HTN and NIDDM who is under ICU management s/p ROSC and endotrachel tube placement. Neuro: - 03/29 CT head: A small subacute infarct upper right maranda corresponding to area of restricted diffusion on prior brain MRI 03/28/2019.. Consider follow-up MRI or CT. Multifocal additional small infarcts identified in prior brain MRI primarily the bilateral posterior cerebral artery distribution are less well characterized due to their and the presence of chronic microangiopathy in this patient reducing density in significant portions of the patient's white matter. No significant mass effect throughout the brain at this time. No intracranial hemorrhage. Multiple chronic lacune. - 03/28 Brain MRI: Multiple acute -subacute infarcts seen scattered about both middle cerebellar peduncles, brainstem including both cerebral peduncles and medial margins of both occipital poles. There is also a faint small infarct in the left vermis subacute -chronic infarct left vermis . Moderate to fairly significant diffuse and confluent chronic white matter ischemic changes seen extending peripherally into the deep and subcortical white matter both cerebral hemispheres. In addition, multiple more discrete chronic infarcts scattered about the deep and subcortical white matter as well as both b chad nuclei and both cerebellar hemispheres left greater than right. 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 No large vessel occlusion appreciated in the intracranial segment of the exam. Moderate to severe mid right cavernous ICA stenosis. Mild origin stenoses of the bilateral cervical internal carotid arteries identified without moderate or high-grade stenosis or even occlusion otherwise. Prominent proximal right cervical ICA ectasis. -Monitor neuro status. -Dr. Braga and Dr. 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 Cardio: -ASA, Plavix, Lipitor -Continue Levophed for pressure support, no signs of HD compromise -F/U Echo with bubble study -Maintain MAP>65. -Monitor for S/S, HD compromise. Pulm: -Intubated on PRVC -Maintain O2 saturation >90%. Vent: protective lung ventilation strategy, aspiration precautions 03/29 CXR: Left upper lobe infiltrate. Satisfactory position of endotracheal tube. 03/29 ABG shows mild resp acidosis, consider decreasing FiO2, f/u repeat in AM -Elevate bed to 30 degrees GI: -NPO, pending NGT placement -Increasing LFTs as compared to 2 days prior, continue to monitor -Pepcid IV for ppx /Nephro: -BUN/Cr improved at 1.2 -UA negative -Insert Smith, strict Is and Os -Continue monitoring. -Replete electrolytes as needed. Hypokalemia and hypocalcemia repleted -Maintain euvolemia. Endocrinology: -Hgb a1c 8.7 -Random glucose: 334 -high ISS, Increase accuchecks to q4 -Maintain euglycemia. Heme/Onc: -H/H stable -No signs of HD compromise. -Continue monitoring H/H ID: -Afebrile, slight leukocytosis -Monitor for signs and symptoms of infection. DVT prophylaxis: Heparin SC GI prophylaxis: Pepcid Code Status: DNR after discussion with family Patient seen, case reviewed and plan approved by Dr. Shola Dasilva. Rylan Benson, PGY-1 <Dom Dasilva - Last Filed: 03/29/19 11:46> Meds - Medications Medications: Current Medications Aspirin (Ecotrin) 81 mg PO DAILY [facility] Last Admin: 03/28/19 09:16 Dose: 81 mg Atorvastatin Calcium (Lipitor) 40 mg PO DIN [facility] Last Admin: 03/28/19 17:31 Dose: 40 mg Clopidogrel Bisulfate (Plavix) 75 mg PO DAILY [facility] Last Admin: 03/28/19 09:16 Dose: 75 mg Famotidine (Pepcid) 20 mg IVP DAILY [facility] Fludrocortisone Acetate (Florinef) 0.1 mg PO DAILY [facility] Last Admin: 03/28/19 10:50 Dose: 0.1 mg Glipizide (Glucotrol) 10 mg PO BID [facility] Last Admin: 03/28/19 17:31 Dose: 10 mg Heparin Sodium (Porcine) (Heparin) 5,000 units SC Q12 [facility]; Protocol Last Admin: 03/28/19 21:53 Dose: 5,000 units Hydrochlorothiazide (Microzide) 12.5 mg PO DAILY [facility] Last Admin: 03/29/19 11:11 Dose: Not Given Sodium Chloride (Sodium Chloride 0.9%) 1,000 mls @ 100 mls/hr IV .Q10H [facility] Last Admin: 03/28/19 21:57 Dose: 100 mls/hr Potassium Chloride (Potassium Chloride 20 Meq/100 Ml) 20 meq in 100 mls @ 50 mls/hr IVPB Q2H [facility] Stop: 03/29/19 14:29 Last Admin: 03/29/19 11:14 Dose: 50 mls/hr NOREPINEPHRINE BIT/0.9 % NACL (Levophed 4 Mg/ 250 Ml Ns Premixed) 4 mg in 250 mls @ 15 mls/hr IV .[id number] [facility]; Protocol PRN Reason: TITRATE PER MD ORDER Insulin Human Regular (Humulin R High) 0 units SC ACHS [facility]; Protocol Nicotine (Nicoderm Cq) 1 patch TD DAILY [facility] Last Admin: 03/28/19 09:16 Dose: 1 patch Non-Formulary Medication (Bisoprolol [Zebeta]) 10 mg PO DAILY [facility] Last Admin: 03/28/19 09:15 Dose: Not Given Results - Vital Signs Recent Vital Signs: Last Vital Signs Temp 98.4 F 03/29/19 06:00 Pulse 102 H 03/29/19 06:00 Resp 20 03/29/19 07:33 BP 170/73 H 03/29/19 06:00 Pulse Ox 99 03/29/19 07:33 - Labs Result Diagrams: 03/29/19 07:40 03/29/19 07:40 Labs: Laboratory Results - last 24 hr 03/28/19 03/28/19 03/29/19 16:34 21:30 07:40 WBC 14.5 H D RBC 4.83 Hgb 14.2 Hct 44.4 MCV 91.9 MCH 29.4 MCHC 32.0 RDW 12.7 Plt Count 156 MPV 13.9 H pCO2 pO2 HCO3 ABG pH ABG Total CO2 ABG O2 Saturation ABG Base Excess ABG Potassium Glucose Lactate FiO2 Crit Value Called To Crit Value Called By Blood Gas Notified Time Sodium Potassium Chloride Carbon Dioxide Anion Gap BUN Creatinine Est GFR ( Amer) Est GFR (Non-Af Amer) POC Glucose (mg/dL) 137 H 87 Random Glucose Calcium Phosphorus Magnesium Total Bilirubin AST ALT Alkaline Phosphatase Total Protein Albumin Globulin Albumin/Globulin Ratio Arterial Blood Potassium 03/29/19 03/29/19 03/29/19 07:40 09:10 11:40 WBC RBC Hgb Hct MCV MCH MCHC RDW Plt Count MPV pCO2 44 pO2 294.0 H HCO3 20.2 L ABG pH 7.27 L ABG Total CO2 21.6 L ABG O2 Saturation 99.8 H ABG Base Excess -6.6 L ABG Potassium 3.6 Glucose 385 H Lactate 2.8 H FiO2 100.0 Crit Value Called To Crit Value Called By Micheal Blood Gas Notified Time 931 Sodium 139 140.0 Potassium 3.3 L Chloride 102 101.0 Carbon Dioxide 21 Anion Gap 19 BUN 18 Creatinine 1.2 Est GFR ( Amer) > 60 Est GFR (Non-Af Amer) 58 POC Glucose (mg/dL) 369 H Random Glucose 334 H* D Calcium 7.8 L Phosphorus 7.5 H Magnesium 1.9 Total Bilirubin 1.4 H AST 147 H D ALT 125 H Alkaline Phosphatase 62 Total Protein 5.8 Albumin 3.2 Globulin 2.6 Albumin/Globulin Ratio 1.2 Arterial Blood Potassium 3.6 Addendum Addendum: 03/29/19 11:45 MICU Attending Addendum: Patient seen and examined with housestaff, case discussed on rounds. I agree with resident note above with the following additions/exceptions: 83M with HTN, DM hx of multiple strokes presented with left facial droop and left side weakness and a non-contrast CT scan of the head showed multiple chronic subcortical infarcts as well as some right parietal and right pontine areas of hypodensity with a subacute appearance. 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 Early this morning shahbaz guerrier called for PEA arrest. Achieved ROSC. Intubated by quill buncher and sorter. I suspect the etiology was resp in nature, possibly unable to clear secretions given his CVA. I spoke with his 2 sons and at bedside who said he would NOT have wanted to CPR in the first place. I conveyed my apologies that he was "coded" but we agreed that if he were to code again, no CPR would be performed. At this time, since he is intubated and hemodyncally stable, we will cont to provide supportive care. If he wakes up and shows signs of neuro recovery then we can conisder extubation, understanding the if were to fail again, he would not be re-intubated. 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 Family understands the decisions we made together. Pal care at bedside as well. For now, check CT head to ensure no worsening or conversion of prior strokes. Levophed via peripheral IV as a conservative measure to above central line procedure as per family wishes cont post- stroke care as per neuro recs CODE STATUS: DNR Rest of care as per resident note above Dom Dasilva MD Attending Pulmonary Critical Care Sleep Medicine CC Time 35 mins
[2019-03-29] MEDS ORDERED: Calcium Gluconate in NS 1 GM/50 ML BAG IV ONE (10:29)
[2019-03-29] MEDS ORDERED: NOREPINEPHRINE BIT/0.9 % NACL 4 MG/250 ML BAG IV PRN (11:23)
[2019-03-29] MEDS: Insulin Reg-HIGH-Coverage SC SCH ×2 (11:30→17:05)
[2019-03-29] MEDS: Insulin Regular 1 UNITS/0.01 ML ML SC SCH (11:55)
--- NOTE | 2019-03-29 11:55 | PCM.PCON ---
History of Present Illness - History of Present Illness History of Present Illness: Palliative consult requested by Karina Kim Reason: Goals of care This is 83 year old man with history of HTN, DM, who initially presented to ED on 03/24 with frequent falls and gait instability. Patient denied vision changes, fevers,dizziness, lightheadedness, LOC, nausea, vomiting, hearing changes, tinnitus. CT of head showed chronic micro angiopathic changes, no acute intra cranial abnormalities. On the morning of 03/27 he was noted to be more lethargic with left facial droop and left side weakness. Code stroke was called. Non- contrast CT scan of the head showed multiple chronic subcortical infarcts as well as some right parietal and right pontine areas of hypodensity with a subacute appearance. CTA of the head/neck showed moderate to severe intra cranial internal carotid artery stenosis on the right. As per Neuro note, he was not candidate for TpA. This morning patient was found to be in respiratory distress apnea. 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 Marred, lives with spouse. Family History: Non contributory Advance Care Planning: Unknown if patient has an advanced directive, family request he be DNR Review of Systems:As per HPI, unable to obtain intubated Physical Exam - Constitutional Appears: Chronically Ill Additional comments: Vital Signs: T 98.4, P 82, BP 170/73, vented 02 sat 99% - Head Exam Head Exam: NORMOCEPHALIC - Eye Exam Eye Exam: PERRL - ENT Exam ENT Exam: Mucous Membranes Moist - Respiratory Exam Respiratory Exam: Clear to Auscultation Bilateral - Cardiovascular Exam Cardiovascular Exam: REGULAR RHYTHM, +S1, +S2 - GI/Abdominal Exam GI & Abdominal Exam: Normal Bowel Sounds, Soft - Neurological Exam Neurological exam: Altered - Skin Skin Exam: Dry - Additional Findings Additional findings: Palliative performance scale 20% Palliative Care Assessment - Keron Scale Sensory Perception: Very Limited Moisture: Occasionally Moist Activity: Bedfast Mobility: Completely Immobile Nutrition: Probably Inadequate Friction & Shear: Problem Total Score - Skin Risk Assessment: 10 Palliative Care - Goals Treatment Goal(s): Alleviate symptoms, Improve quality of life End of life care discussed: Yes - Plan Interdisciplinary involved: Nurse, lumber yard worker, Physician Assessment & Plan - Assessment and Plan (Free Text) Assessment: This is 83 year old man with history of HTN, DM, who is admitted with CVA and is s/p cardiopulmonary arrest this morning. He is now intubated and on vasopressor support. Patient's and sons at bedside. Family has been updated of patient's con dition by the ICU team. Family also aware of results of head CT which was done this morning. Family expressed concerns about trajectory of patient illness during his hospitalization. Acknowledged their concerns, psychosocial support provided. Family has established that patient is to be DNR. Family wants to continue aggressive medical support at this time. Family will make further decisions based on patient's clinical progress over the next few days. Spiritual support offered, declined at this time I met with and oldest son later in the day. In the interim family spoke with Dr Monahan/Neuro and indicated that they understand the severity of patients brain injury. states she really doesn't want on ventilator. Encouraged to discuss feelings with both sons. Also encouraged to give things a day or so to see if patient can be weaned from vent. Comfort care discussed briefly. Will follow up with family tomorrow. Time spent with family in goals of care and advance care planning, 30 minutes Plan: Goals of care and advance Goals of care and advance care planning Continue Levophed for pressure support,maintain MAP>65. Continue vent support,maintain O2 saturation >90%. Monitor labs, correct electrolytes as needed. Neuro recs reviewed
--- NOTE | 2019-03-29 13:11 | CP.PCM.PN ---
Subjective - Date & Time of Evaluation Date of Evaluation: 03/29/19 Time of Evaluation: 13:08 - Subjective Subjective: Mr. Chang was seen and examined today at bedside in the ICU. He was intubated and sedated due to recent cardiac arrest. I spoke with the family and discussed the MRI brain findings. We discussed the possibility of a cardiac thrombus causing the strokes since the patient has multiple embolic appearing infarcts in both hemispheres and in that anterior and posterior circulation. Objective - Vital Signs/Intake and Output Vital Signs (last 24 hours): Temp Pulse Resp BP Pulse Ox 98.4 F 102 H 20 170/73 H 99 03/29/19 06:00 03/29/19 06:00 03/29/19 07:33 03/29/19 06:00 03/29/19 07:33 Intake and Output: 03/29/19 03/29/19 06:59 18:59 Intake Total 0 Balance 0 - Medications Medications: Current Medications Aspirin (Ecotrin) 81 mg PO DAILY [facility] Last Admin: 03/28/19 09:16 Dose: 81 mg Atorvastatin Calcium (Lipitor) 40 mg PO DIN [facility] Last Admin: 03/28/19 17:31 Dose: 40 mg Clopidogrel Bisulfate (Plavix) 75 mg PO DAILY [facility] Last Admin: 03/28/19 09:16 Dose: 75 mg Famotidine (Pepcid) 20 mg IVP DAILY [facility] Last Admin: 03/29/19 12:11 Dose: 20 mg Fludrocortisone Acetate (Florinef) 0.1 mg PO DAILY [facility] Last Admin: 03/28/19 10:50 Dose: 0.1 mg Glipizide (Glucotrol) 10 mg PO BID [facility] Last Admin: 03/28/19 17:31 Dose: 10 mg Heparin Sodium (Porcine) (Heparin) 5,000 units SC Q12 [facility]; Protocol Last Admin: 03/28/19 21:53 Dose: 5,000 units Hydrochlorothiazide (Microzide) 12.5 mg PO DAILY [facility] Last Admin: 03/29/19 11:11 Dose: Not Given Sodium Chloride (Sodium Chloride 0.9%) 1,000 mls @ 100 mls/hr IV .Q10H [facility] Last Admin: 03/28/19 21:57 Dose: 100 mls/hr Potassium Chloride (Potassium Chloride 20 Meq/100 Ml) 20 meq in 100 mls @ 50 mls/hr IVPB Q2H [facility] Stop: 03/29/19 14:29 Last Admin: 03/29/19 11:14 Dose: 50 mls/hr NOREPINEPHRINE BIT/0.9 % NACL (Levophed 4 Mg/ 250 Ml Ns Premixed) 4 mg in 250 mls @ 15 mls/hr IV .[id number] PRN; Protocol PRN Reason: TITRATE PER MD ORDER Insulin Human Regular (Humulin R High) 0 units SC ACHS [facility]; Protocol Nicotine (Nicoderm Cq) 1 patch TD DAILY [facility] Last Admin: 03/28/19 09:16 Dose: 1 patch Non-Formulary Medication (Bisoprolol [Zebeta]) 10 mg PO DAILY [facility] Last Admin: 03/28/19 09:15 Dose: Not Given - Labs Labs: 03/29/19 07:40 03/29/19 07:40 - Neurological Exam Neurological Exam: Altered Neuro motor strength exam: Left Upper Extremity: 2/1, Right Upper Extremity: 2/1, Left Lower Extremity: 2/1, Right Lower Extremity: 2/1 Additional comments: Somnolent/sedated, moves all extremities slightly to pain, but more movement is noted on the right side as compared with the left. Assessment and Plan (1) Ischemic stroke Assessment & Plan: Review of the MRI showed multiple cardio-embolic appearing infarcts. This is likely superimposed on his stenotic vasculature and has caused the present clinical picture. I recommend obtaining a OLESYA for further evaluation for a cardiac thrombus. Heparin drip should then be considered to prevent further inf arcts. Status: Acute
[2019-03-29] MEDS: Non Formulary Medication (Bisoprolol [Zebeta] 10 mg) PO SCH (13:14)
[2019-03-29 13:20] LABS: VENOUS BLOOD GAS PO2 50 mm/Hg (30-55); VENOUS BLOOD PH 7.31 (7.32-7.43)
--- NOTE | 2019-03-29 16:26 | CARD ---
APPROVED REPORT Date of service: 03/29/2019 EXAM: Two-dimensional and M-mode echocardiogram with Doppler and color Doppler. INDICATION STROKE..BUBBLE STUDY 2D DIMENSIONS Left Atrium (2D)4.0 (1.6-4.0cm)IVSd1.7 (0.7-1.1cm) LVDd3.3 (3.9-5.9cm)PWd1.6 (0.7-1.1cm) LVDs2.3 (2.5-4.0cm)FS (%) 29.6 % LVEF (%)58.0 (>50%) M-Mode DIMENSIONS Aortic Root3.80 (2.2-3.7cm)Aortic Cusp Exc.1.20 (1.5-2.0cm) Aortic Valve AoV Peak Axtvthqh880.0cm/Eyad Peak GR.5mmHg Mitral Valve MV E Ikmsglja76.2cm/sMV A Zkixbbsl60.9cm/sE/A ratio0.8 TDI E/Lateral E'0.0E/Medial E'0.0 Pulmonary Valve PV Peak Tspqripn04.5cm/sPV Peak Grad.2mmHg Tricuspid Valve TR Peak [id number]/sRAP [id number] Peak Gr.25mmHg [id number] LEFT VENTRICLE The left ventricle is normal size. There is mild to moderate concentric left ventricular hypertrophy. The left ventricular function is normal. The left ventricular ejection fraction is within the normal range. There is normal LV segmental wall motion. Transmitral Doppler flow pattern is Grade I-abnormal relaxation pattern. RIGHT VENTRICLE The right ventricle is normal size. There is normal right ventricular wall thickness. The right ventricular systolic function is normal. ATRIA The left atrium size is normal. The right atrium size is normal. AORTIC VALVE The aortic valve is moderately thickened. No aortic regurgitation is present. There is no aortic valvular stenosis. MITRAL VALVE The mitral valve is moderately thickened. There is no mitral valve regurgitation noted. There is no mitral valve stenosis. TRICUSPID VALVE There is mild tricuspid regurgitation. There is mild pulmonary hypertension. PULMONIC VALVE The pulmonary valve is normal in structure. There is no pulmonic valvular regurgitation. GREAT VESSELS The aortic root is mildly enlarged. The IVC is normal in size and collapses >50% with inspiration. <Conclusion> There is mild to moderate concentric left ventricular hypertrophy. The left ventricular function is normal. The left ventricular ejection fraction is within the normal range. There is normal LV segmental wall motion. Transmitral Doppler flow pattern is Grade I-abnormal relaxation pattern. There is mild tricuspid regurgitation. There is mild pulmonary hypertension.
--- NOTE | 2019-03-29 16:41 | CARD ---
APPROVED REPORT Date of service: 03/29/2019 EKG Measurement Heart [id number] <Conclusion> Sinus tachycardia Right bundle branch block Non specific T-wave changes Abnormal ECG
[2019-03-29 17:25] VITALS: TEMP 99
[2019-03-30] MEDS: Insulin Reg-HIGH-Coverage SC SCH (04:56)
[2019-03-30] MEDS: Sodium Chloride 0.9% 1,000 ML IV SCH (05:52)
--- NOTE | 2019-03-30 07:13 | CP.CCUPN ---
<Rylan Benson - Last Filed: 03/30/19 09:56> CCU Subjective - Physician Review Subjective (Free Text): 03/30/19 07:06 Rylan Benson PGY-1 Critical Care Progress Note Patient seen and evaluated at bedside. No acute events reported overnight. Patient currently off pressors. Currently maintained on PRVC. Further ROS unable to be obtained due to clinical condition. CCU Objective - Vital Signs / Intake & Output Vital Signs (Last 4 hours): Vital Signs Resp Pulse Ox 03/30/19 07:02 20 98 Intake and Output (Last 8hrs): Intake & Output 03/29/19 03/30/19 03/30/19 22:59 06:59 14:59 Intake Total 1500 Output Total 150 Balance 1350 Intake: IV 1500 Left Antecubital 1500 Output: Urine 100 Urine, Voided 100 Emesis 50 Other: # Bowel Movements 1 - Physical Exam Head: Positive for: Atraumatic, Normocephalic Pupils: Positive for: PERRL, Sluggish Conjunctiva: Positive for: Normal Mouth: Positive for: Moist Mucous Membranes Nose (External): Positive for: Atraumatic Neck: Positive for: Normal Range of Motion, Trachea Midline. Negative for: MIDLINE TENDERNESS, Lymphadenopathy Respiratory/Chest: Positive for: Clear to Auscultation, Good Air Exchange, Respiratory Distress (ventilated on PRVC) Cardiovascular: Positive for: Regular Rate and Rhythm, Normal S1, S2. Negative for: Murmurs Abdomen: Positive for: Normal Bowel Sounds. Negative for: Tenderness, Distention Back: Positive for: Normal Inspection Upper Extremity: Positive for: Normal Inspection, Normal ROM, Neurovascularly Intact Lower Extremity: Positive for: Normal Inspection, Normal ROM, Neurovascularly Intact Neurological: Negative for: GCS=15, CN II-XII Intact, Speech Normal, Motor Func Grossly Intact Skin: Positive for: Warm, Dry, Normal Color Lymphatic: Negative for: Cervical Adenopathy Psychiatric: Negative for: Alert, Oriented x 3 - Medications Active Medications: Active Medications Generic Name Dose Route Start Last Admin Trade Name Freq PRN Reason Stop Dose Admin Aspirin 81 mg 03/28/19 10:00 03/29/19 13:14 Ecotrin PO Not Given DAILY [facility] Atorvastatin Calcium 40 mg 03/28/19 17:00 03/29/19 17:05 Lipitor PO Not Given DIN [facility] Clopidogrel Bisulfate 75 mg 03/28/19 10:00 03/29/19 16:36 Plavix PO Not Given DAILY [facility] Famotidine 20 mg 03/29/19 11:30 03/29/19 12:11 Pepcid IVP 20 mg DAILY [facility] Administration Fludrocortisone Acetate 0.1 mg 03/26/19 16:30 03/29/19 13:14 Florinef PO Not Given DAILY [facility] Glipizide 10 mg 03/24/19 18:00 03/29/19 17:05 Glucotrol PO Not Given BID [facility] Heparin Sodium (Porcine) 5,000 units 03/28/19 10:00 03/29/19 23:23 Heparin SC Not Given Q12 [facility] Protocol Hydrochlorothiazide 12.5 mg 03/25/19 10:00 03/29/19 11:11 Microzide PO Not Given DAILY [facility] Sodium Chloride 1,000 mls @ 100 mls/hr 03/27/19 12:15 03/30/19 05:52 Sodium Chloride 0.9% IV 100 mls/hr .Q10H [facility] Administration NOREPINEPHRINE BIT/0.9 % NACL 4 mg in 250 mls @ 15 mls/hr 03/29/19 11:23 Levophed 4 Mg/ 250 Ml Ns Premixed IV .[id number] PRN TITRATE PER MD ORDER Protocol 4 MCG/MIN Insulin Human Regular 0 units 03/29/19 11:30 03/30/19 04:56 Humulin R High SC Not Given ACHS [facility] Protocol Nicotine 1 patch 03/27/19 10:00 03/29/19 17:05 Nicoderm Cq TD 1 patch DAILY [facility] Administration Non-Formulary Medication 10 mg 03/25/19 10:00 03/29/19 13:14 Bisoprolol [Zebeta] PO Not Given DAILY [facility] - Patient Studies Lab Studies: Lab Studies 03/29/19 03/29/19 03/29/19 Range/Units 16:46 13:10 11:40 WBC (4.5-11.0) 10^3/uL RBC (3.5-6.1) 10^6/uL Hgb (14.0-18.0) g/dL Hct (42.0-52.0) % MCV (80.0-105.0) fl MCH (25.0-35.0) pg MCHC (31.0-37.0) g/dl RDW (11.5-14.5) % Plt Count (120.0-450.0) 10^3/uL MPV (7.0-11.0) fl pCO2 (35-45) mm/Hg pO2 50 (80-100) mm/Hg HCO3 (21-28) mmol/L ABG pH (7.35-7.45) ABG Total CO2 (22-28) mmol.L ABG O2 Saturation (95-98) % ABG Base Excess (-2.0-3.0) mmol/L ABG Potassium (3.6-5.2) mmol/L VBG pH 7.31 L (7.32-7.43) VBG pCO2 42.0 (40-60) VBG HCO3 21.1 (21-28) mmol/l VBG Total CO2 22.4 (22-28) mmol.L VBG O2 Sat (Calc) 85.1 H (40-65) % VBG Base Excess -5.0 L (0.0-2.0) mmol/L VBG Potassium 4.3 (3.6-5.2) mmol/L Glucose 401 H* (75-110) mg/dl Lactate 2.7 H (0.7-2.1) mmol/L FiO2 21.0 % Crit Value Called To [facility] Crit Value Called By Ab Blood Gas Notified Time 1320 Sodium 139.0 (132-148) mmol/L Potassium (3.6-5.0) mmol/L Chloride 98.0 (98-107) mmol/L Carbon Dioxide (21-33) mmol/L Anion Gap (10-20) BUN (7-21) mg/dL Creatinine (0.8-1.5) mg/dl Est GFR ( Amer) Est GFR (Non-Af Amer) POC Glucose (mg/dL) 341 H 369 H (65-110) mg/dL Random Glucose (70-110) mg/dL Calcium (8.4-10.5) mg/dL Phosphorus (2.5-4.5) mg/dL Magnesium (1.7-2.2) mg/dL Total Bilirubin (0.2-1.3) mg/dL AST (17-59) U/L ALT (7-56) U/L Alkaline Phosphatase (38-126) U/L Total Protein (5.8-8.3) g/dL Albumin (3.0-4.8) g/dL Globulin gm/dL Albumin/Globulin Ratio (1.1-1.8) Arterial Blood Potassium (3.6-5.2) mmol/L Venous Blood Potassium 4.3 (3.6-5.2) mmol/L 03/29/19 03/29/19 03/29/19 Range/Units 09:10 07:40 07:40 WBC 14.5 H D (4.5-11.0) 10^3/uL RBC 4.83 (3.5-6.1) 10^6/uL Hgb 14.2 (14.0-18.0) g/dL Hct 44.4 (42.0-52.0) % MCV 91.9 (80.0-105.0) fl MCH 29.4 (25.0-35.0) pg MCHC 32.0 (31.0-37.0) g/dl RDW 12.7 (11.5-14.5) % Plt Count 156 (120.0-450.0) 10^3/uL MPV 13.9 H (7.0-11.0) fl pCO2 44 (35-45) mm/Hg pO2 294.0 H (80-100) mm/Hg HCO3 20.2 L (21-28) mmol/L ABG pH 7.27 L (7.35-7.45) ABG Total CO2 21.6 L (22-28) mmol.L ABG O2 Saturation 99.8 H (95-98) % ABG Base Excess -6.6 L (-2.0-3.0) mmol/L ABG Potassium 3.6 (3.6-5.2) mmol/L VBG pH (7.32-7.43) VBG pCO2 (40-60) VBG HCO3 (21-28) mmol/l VBG Total CO2 (22-28) mmol.L VBG O2 Sat (Calc) (40-65) % VBG Base Excess (0.0-2.0) mmol/L VBG Potassium (3.6-5.2) mmol/L Glucose 385 H (75-110) mg/dl Lactate 2.8 H (0.7-2.1) mmol/L FiO2 100.0 % Crit Value Called To Crit Value Called By Micheal Blood Gas Notified Time 931 Sodium 140.0 139 (132-148) mmol/L Potassium 3.3 L (3.6-5.0) mmol/L Chloride 101.0 102 (98-107) mmol/L Carbon Dioxide 21 (21-33) mmol/L Anion Gap 19 (10-20) BUN 18 (7-21) mg/dL Creatinine 1.2 (0.8-1.5) mg/dl Est GFR ( Amer) > 60 Est GFR (Non-Af Amer) 58 POC Glucose (mg/dL) (65-110) mg/dL Random Glucose 334 H* D (70-110) mg/dL Calcium 7.8 L (8.4-10.5) mg/dL Phosphorus 7.5 H (2.5-4.5) mg/dL Magnesium 1.9 (1.7-2.2) mg/dL Total Bilirubin 1.4 H (0.2-1.3) mg/dL AST 147 H D (17-59) U/L ALT 125 H (7-56) U/L Alkaline Phosphatase 62 (38-126) U/L Total Protein 5.8 (5.8-8.3) g/dL Albumin 3.2 (3.0-4.8) g/dL Globulin 2.6 gm/dL Albumin/Globulin Ratio 1.2 (1.1-1.8) Arterial Blood Potassium 3.6 (3.6-5.2) mmol/L Venous Blood Potassium (3.6-5.2) mmol/L Laboratory Results - last 24 hr 03/29/19 03/29/19 03/29/19 07:40 07:40 09:10 WBC 14.5 H D RBC 4.83 Hgb 14.2 Hct 44.4 MCV 91.9 MCH 29.4 MCHC 32.0 RDW 12.7 Plt Count 156 MPV 13.9 H pCO2 44 pO2 294.0 H HCO3 20.2 L ABG pH 7.27 L ABG Total CO2 21.6 L ABG O2 Saturation 99.8 H ABG Base Excess -6.6 L ABG Potassium 3.6 VBG pH VBG pCO2 VBG HCO3 VBG Total CO2 VBG O2 Sat (Calc) VBG Base Excess VBG Potassium Glucose 385 H Lactate 2.8 H FiO2 100.0 Crit Value Called To Crit Value Called By Micheal Blood Gas Notified Time 931 Sodium 139 140.0 Potassium 3.3 L Chloride 102 101.0 Carbon Dioxide 21 Anion Gap 19 BUN 18 Creatinine 1.2 Est GFR ( Amer) > 60 Est GFR (Non-Af Amer) 58 POC Glucose (mg/dL) Random Glucose 334 H* D Calcium 7.8 L Phosphorus 7.5 H Magnesium 1.9 Total Bilirubin 1.4 H AST 147 H D ALT 125 H Alkaline Phosphatase 62 Total Protein 5.8 Albumin 3.2 Globulin 2.6 Albumin/Globulin Ratio 1.2 Arterial Blood Potassium 3.6 Venous Blood Potassium 03/29/19 03/29/19 03/29/19 11:40 13:10 16:46 WBC RBC Hgb Hct MCV MCH MCHC RDW Plt Count MPV pCO2 pO2 50 HCO3 ABG pH ABG Total CO2 ABG O2 Saturation ABG Base Excess ABG Potassium VBG pH 7.31 L VBG pCO2 42.0 VBG HCO3 21.1 VBG Total CO2 22.4 VBG O2 Sat (Calc) 85.1 H VBG Base Excess -5.0 L VBG Potassium 4.3 Glucose 401 H* Lactate 2.7 H FiO2 21.0 Crit Value Called To Abby Crit Value Called By Ab Blood Gas Notified Time 1320 Sodium 139.0 Potassium Chloride 98.0 Carbon Dioxide Anion Gap BUN Creatinine Est GFR ( Amer) Est GFR (Non-Af Amer) POC Glucose (mg/dL) 369 H 341 H Random Glucose Calcium Phosphorus Magnesium Total Bilirubin AST ALT Alkaline Phosphatase Total Protein Albumin Globulin Albumin/Globulin Ratio Arterial Blood Potassium Venous Blood Potassium 4.3 Radiology Impressions: Radiology Impressions Chest X-Ray 03/29/19 07:19 IMPRESSION: Left upper lobe infiltrate. Satisfactory position of endotracheal tube. Head CT 03/29/19 07:20 IMPRESSION: A small subacute infarct upper right maranda corresponding to area of restricted diffusion on prior brain MRI 03/28/2019.. Consider follow-up MRI or CT. Multifocal additional small infarcts identified in prior brain MRI primarily the bilateral posterior cerebral artery distribution are less well characterized due to their and the presence of chronic microangiopathy in this patient reducing density in significant portions of the patient's white matter. No significant mass effect throughout the brain at this time. No intracranial hemorrhage. Multiple chronic lacune is are identified as discussed above. Findings discussed with Dr. Lenora Guan with written down and read back verification 03/29/2019 8:39 a.m.. EKG/Cardiology Studies: Cardiology / EKG Studies 03/29/19 07:19 EKG [ELECTROCARDIOGRAM] Stat Comment: Reason For Exam: Code Blue 03/30/19 06:00 EKG [ELECTROCARDIOGRAM] Routine Comment: Reason For Exam: prolonged QT Fingerstick Blood Sugar Results: 341 Review of Systems - Review of Systems Systems not reviewed;Unavailable: Intubated Critical Care Progress Note - Nutrition Nutrition: Nutrition Category Date Time Status NPO Diet [DIET] Diets 03/29/19 Breakfast Ordered Assessment/Plan - Assessment and Plan (Free Text) Assessment: Mr. Chang is a 83 M with PMHx of HTN and NIDDM who is under ICU management s/p ROSC and endotrachel tube placement. Neuro: - 03/29 CT head: A small subacute infarct upper right maranda corresponding to area of restricted diffusion on prior brain MRI 03/28/2019.. Consider follow-up MRI or CT. Multifocal additional small infarcts identified in prior brain MRI primarily the bilateral posterior cerebral artery distribution are less well characterized due to their and the presence of chronic microangiopathy in this patient reducing density in significant portions of the patient's white matter. No significant mass effect throughout the brain at this time. No intracranial hemorrhage. Multiple chronic lacune. - 03/28 Brain MRI: Multiple acute -subacute infarcts seen scattered about both middle cerebellar peduncles, brainstem including both cerebral peduncles and medial margins of both occipital poles. There is also a faint small infarct in the left vermis subacute -chronic infarct left vermis . Moderate to fairly significant diffuse and confluent chronic white matter ischemic changes seen extending peripherally into the deep and subcortical white matter both cerebral hemispheres. In addition, multiple more discrete chronic infarcts scattered about the deep and subcortical white matter as well as both basal nuclei and both cerebellar hemispheres left greater than right. 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 No large vessel occlusion appreciated in the intracranial segment of the exam. Moderate to severe mid right cavernous ICA stenosis. Mild origin stenoses of the bilateral cervical internal carotid arteries identified without moderate or high-grade stenosis or even occlusion otherwise. Prominent proximal right cervical ICA ectasis. -Monitor neuro status. -Dr. Braga and Dr. Monahan on consult - recommend OLESYA to r/o cardiac origin of embolism to brain -Vitamin B12 normal -Reorient patient as necessary. Cardio: -ASA, Plavix, Lipitor -Off pressors, no signs of HD compromise 03/29 Echo with bubble study shows EF 58%, mod LVH, negative bubble 03/29 EKG revelaed prolonged QT, repeat today shows persistent prolonged QT -Maintain MAP>65. -Monitor for S/S, HD compromise. Pulm: -Currently Intubated on PRVC -Maintain O2 saturation >90%. Vent: protective lung ventilation strategy, aspiration precautions 03/29 CXR: Left upper lobe infiltrate. Satisfactory position of endotracheal tube. 03/29 ABG shows mild resp acidosis, consider decreasing FiO2, f/u repeat in AM -Elevate bed to 30 degrees GI: -NPO -Pepcid IV for ppx /Nephro: -UA negative -Family refused Smith -Continue monitoring. -Replete electrolytes as needed. Hypokalemia and hypocalcemia repleted -Maintain euvolemia. Endocrinology: -Hgb a1c 8.7 -Random glucose: 341 -high ISS, accuchecks q4 -Maintain euglycemia. Heme/Onc: -H/H stable -No signs of HD compromise, off pressors. -Continue monitoring H/H ID: -Afebrile, slight leukocytosis -Monitor for signs and symptoms of infection. DVT prophylaxis: Heparin SC GI prophylaxis: Pepcid Dispo: Plan to terminally extubate today per family wishes, hospice and palliative on board Patient seen, case reviewed and plan approved by Dr. Shola Dasilva. Rylan Benson, PGY-1 <Dom Dasilva - Last Filed: 03/30/19 19:21> CCU Objective - Patient Studies EKG/Cardiology Studies: Cardiology / EKG Studies 03/30/19 06:00 EKG [ELECTROCARDIOGRAM] Routine Comment: Reason For Exam: prolonged QT Critical Care Progress Note - Nutrition Nutrition: Nutrition Category Date Time Status NPO Diet [DIET] Diets 03/29/19 Breakfast Ordered Addendum Addendum: 03/30/19 19:19 MICU Attending Addendum: Patient seen and examined with housestaff, case discussed on rounds. I agree with resident note above with the following Spoke with family (both sons and mother) today patient not waking up off sedation no gag or pupillary reflex family reiterates that the patient would not want any type of "life support" and they wanted him transition to FURNITURE MECHANIC/ [facility] as well all parties in agreement that extubate to comfort would be consistent with his goals of care and reasonable given his co-morbdities and current condition extubate to comfort comfort measures only Rest of care as per resident note above Dom Dasilva MD Attending Pulmonary Critical Care Sleep Medicine
[2019-03-30] MEDS ORDERED: Morphine PCA 1 mg/ml (30ml) 30 ML IV PRN (09:36)
--- NOTE | 2019-03-30 10:30 | CP.PCM.PRO ---
Pronouncement of Note - Clinical Findings Physical Exam: No Response Verbal/Painful Stimuli, Absent Heart & Breath Sounds, No Pupillary Light Reflex, No Corneal Reflex, Pupils Fixed & Dilated, Absence of Vital Signs - Pronouncement Time Time of Pronouncement of : 10:17 - Notifications Pronouncement Notifications: Family Notified, Atending Notified Provider Network Manager Notified: No - Autopsy Autopsy Requested: No - [place] [id number]
[2019-03-30 10:59] VITALS: BP 106/50; PULSE 55; RESP 12; O2SAT 87
--- NOTE | 2019-03-30 11:11 | PCM.PPROG ---
History of Present Illness - History of Present Illness History of Present Illness: Intubated, not sedated >unresponsive Physical Exam - Constitutional Appears: Chronically Ill - Head Exam Head Exam: NORMOCEPHALIC - Eye Exam Pupil Exam: Fixed - Respiratory Exam Respiratory Exam: Decreased Breath Sounds - Cardiovascular Exam Cardiovascular Exam: REGULAR RHYTHM - GI/Abdominal Exam GI & Abdominal Exam: Hypoactive Bowel Sounds, Soft - Extremities Exam Extremities exam: Positive for: pedal pulses present - Skin Skin Exam: Dry, Pallor Palliative Care Assessment - Keron Scale Sensory Perception: Completely Limited Moisture: Occasionally Moist Activity: Bedfast Mobility: Completely Immobile Nutrition: Very Poor Friction & Shear: Problem Total Score - Skin Risk Assessment: 8 - Psychosocial Distress Patient screened for psychosocial distress: Yes Outcome: Resolved Palliative Care - Goals Treatment Goal(s): Alleviate symptoms, Improve quality of life End of life care discussed: Yes - Plan Interdisciplinary involved: Nurse, interior surface insulation worker, Physician Discharge planning: Hospice Assessment & Plan - Assessment and Plan (Free Text) Assessment: This is 83 year old man with history of HTN, DM, who is admitted with CVA and is s/p cardiopulmonary arrest. Family at bedside. Family requesting terminal extubation and comfort care. Family aware that patient will not survive once extubated. Family understands outcome and is prepared to extubate. Hospice care also offered. Psychosocial support,end of life counseling provided. Time spent with family in end of life counseling, 50 minutes Plan: End of life counseling DNR/DNI Terminal extubation Hospice evaluation
--- NOTE | 2019-03-30 19:48 | CARD ---
APPROVED REPORT Date of service: 03/30/2019 EKG Measurement Heart [id number] <Conclusion> Normal sinus rhythm ST & T wave abnormalities Prolonged QT Abnormal ECG
--- NOTE | 2019-04-01 01:43 | DS ---
DATE OF DISCHARGE/EXPIRATION: , 03/30/2019. HISTORY OF PRESENT ILLNESS: This was an 83-year-old Czech-speaking man who presented to the emergency room at the insistence of his family after suffering several falls at home. The patient does not use any assistive devices at home; however, recently began to fall and family noted him holding on to albright and furniture as he ambulated. In his last visit in the office when seen by Dr. Ehsan Guan, there was no mention of these falls. Seen and admitted, the patient denied lightheadedness, vertigo, or orthostasis. PAST MEDICAL HISTORY: Hypertension, diabetes, and tobacco use. His diabetes had been difficult to control due to dietary indiscretion and followup. SOCIAL HISTORY: He smokes half a pack of cigarettes a day. He does not drink alcohol. He is , lives with his , and their son is nearby. MEDICATIONS: Include Jardiance, bisoprolol, Glucotrol, metformin, and hydrochlorothiazide. CT scan on admission showed small vessel disease, but otherwise unremarkable. EKG was sinus rhythm. HOSPITAL COURSE: The patient was admitted. A Neurology consultation was requested. He seemed to have been doing rather well. Arrangements were being made for discharge to Transitional Care Unit, and on the morning of the , he was noted to be weak on the left side. CODE STROKE was called. Consulting neurologist, Dr. Monahan, saw the patient. He was not a candidate for TPA. A CT angiogram was performed as well as CT scan of the head. The CT of the head was essentially unchanged. The CT angiogram showed diffuse atherosclerotic cerebrovascular disease. The next morning, an MRI was performed showing several areas of scattered acute and subacute infarcts in the middle cerebral pedicles and brain stem and medial margins of both occipital lobes as well as fairly significant diffuse white matter ischemic changes and atherosclerotic vascular disease. The next day, the patient suffered a cardiac arrest, was found in PEA, was resuscitated with IV fluids and CPR, he was intubated and transferred to Intensive Care. The family was notified and were present. Because of the grim prognosis, a DO NOT RESUSCITATE order was written. The patient's condition smoldered for the next 48 hours. Janeen Perkins, the palliative care nurse practitioner managed services sales consultant saw the patient and spoke with the family on numerous occasions. A terminal extubation was planned for this morning and the patient a few minutes later. FINAL DISCHARGE DIAGNOSES: 1. Stroke. 2. Atherosclerotic cerebrovascular disease. 3. Hypertension. 4. Diabetes. 5. Tobacco use disorder. Bobo Guan MD
== END 2019-03-30 10:17 | DRG 65 ==
LOC: ED 10:39 → ERH 13:34 → 5RSO 15:16 → 5RNO 03-25 19:04 → 2RSO 03-27 11:18 → CCU 03-29 07:24
PROVIDERS: ADMIT Internal Medicine; ATTEND Internal Medicine
PROC: 0BH17EZ Insertion of Endotracheal Airway into Trachea, Via Natural or Artificial Opening (ICD-10-PCS; principal; 2019-03-29)
PROC: 5A1945Z Respiratory Ventilation, 24-96 Consecutive Hours (ICD-10-PCS; 2019-03-29)
DX: I63.40 Cerebral infarction due to embolism of unspecified cerebral artery (principal); G81.04 Flaccid hemiplegia affecting left nondominant side; E87.2 Acidosis; R47.01 Aphasia; I65.21 Occlusion and stenosis of right carotid artery; R29.810 Facial weakness; I10 Essential (primary) hypertension; E11.42 Type 2 diabetes mellitus with diabetic polyneuropathy; I46.9 Cardiac arrest, cause unspecified; I67.2 Cerebral atherosclerosis; R29.6 Repeated falls; I95.1 Orthostatic hypotension; E11.51 Type 2 diabetes mellitus with diabetic peripheral angiopathy without gangrene; E87.6 Hypokalemia; E83.51 Hypocalcemia; R26.81 Unsteadiness on feet; F17.210 Nicotine dependence, cigarettes, uncomplicated; Z79.84 Long term (current) use of oral hypoglycemic drugs; Z66 Do not resuscitate; Z51.5 Encounter for palliative care